=== PATIENT | female | born 1960 | race Caucasian/White ===

== ENCOUNTER 2018-05-12 14:00 | Outpatient (CLI) | payer OTHER ==
[2015-12-17 12:11] VITALS: BP 139/88
[2018-05-12 14:34] LABS: BASOPHILS % 0.7 (0.0-1.5); EOSINOPHILS % 7.2 % (0.0-6.8); MEAN CORPUSCULAR HEMOGLOBIN 27.3 pg (28.0-34.0); MONOCYTES % 6.4 % (0.0-11.0); NEUTROPHILS # 5.1 # k/uL (1.4-7.7)
[2018-05-12 14:41] LABS: eGFR (Non-African) > 60
== END 2018-05-12 14:02 ==
LOC: LAB 14:00
PROVIDERS: ATTEND Family Medicine
DX: I10 Essential (primary) hypertension (principal); I65.23 Occlusion and stenosis of bilateral carotid arteries
CPT/HCPCS: 36415; 80053; 85025

== ENCOUNTER 2018-05-13 12:50 | Outpatient (CLI) | payer OTHER ==
[2015-12-17 12:11] VITALS: BP 139/88
--- NOTE | 2018-05-13 17:20 | Diagnostic Imaging Report ---
MAHSA BARRIOS [facility] [address] [facility] [address] [place] [address]. [id number] Report Submission Date: May 13, 2018 5:07:08 PM ESTABLISHMENT GUIDE Patient Study Name: BELLA RICO Date: May 13, 2018 1:06:18 PM ESTABLISHMENT GUIDE Modality Type: US Gender: F Description: US CAROTID : 58 Institution: [facility] Physician: MAHSA BARRIOS Duplex carotid ultrasound Clinical history carotid stenosis Comparison: None Technique ultrasound and color Doppler was performed of the carotid arteries Findings: There is atherosclerotic plaque in the right common carotid artery and right carotid bulb. Plaque extends in the proximal right internal and external carotid arteries. There is no evidence of hemodynamically significant stenosis. Right vertebral artery blood flow is antegrade new. The left common carotid artery left carotid bulb and left internal carotid artery show atherosclerotic plaque and intimal thickening. The degree of stenosis appears less than 50%. There is left vertebral artery antegrade blood flow. A right internal carotid artery peak flow velocities 105 cm per second. The left internal carotid artery peak flow velocities 107 cm per second. The systolic right internal to common carotid ratio is 1.1. The left systolic internal carotid common carotid the ratio is 1.4 Impression: 16 of 49% bilateral internal carotid artery stenosis Antegrade vertebral blood flow Electronically signed on May 13, 2018 5:07:08 PM ESTABLISHMENT GUIDE by: Gerhard PAYNE
--- NOTE | 2018-05-13 17:21 | Diagnostic Imaging Report ---
MAHSA BARRIOS [facility] [address] [facility] [address] [address] Report Submission Date: May 13, 2018 4:29:04 PM FINANCIAL AID COORDINATOR Patient Study Name: BELLA RICO Date: May 13, 2018 1:42:45 PM FINANCIAL AID COORDINATOR Modality Type: US\OT Gender: F Description: : 58 Institution: [facility] Physician: MAHSA BARRIOS Examination: Ultrasound arterial History: Leg discomfort Comparison exams: None available Findings: Sonographic evaluation of the lower extremity arterial system from the groin to the distal extremities bilaterally demonstrates diminished waveforms. Right ankle(DP)/brachial index of 0.72. Left ankle (DP)/brachial index of 0.36 Impression: Left greater than right significant restriction hemodynamic flow - consider distal extremity runoff examination to further evaluate. Electronically signed on May 13, 2018 4:29:04 PM FINANCIAL AID COORDINATOR by: Xavi PAYNE
== END 2018-05-13 12:55 | disposition home or self-care (01) ==
LOC: RAD 12:50
PROVIDERS: ATTEND Family Medicine
DX: I73.9 Peripheral vascular disease, unspecified (principal); I65.23 Occlusion and stenosis of bilateral carotid arteries
CPT/HCPCS: 93880; 93923

== ENCOUNTER 2019-01-06 17:10 | Inpatient (IN) | payer OTHER ==
[2019-01-06] MEDS ORDERED: IPRATROPIUM/ALBUTEROL SULFATE 3 ML AMPUL.NEB NEB ONE ×4 (17:20→23:22)
--- NOTE | 2019-01-06 17:44 | ED Physician Documentation ---
Dyspnea - HISTORIAN Historian: patient - HPI Stated Complaint: shortness of breath Chief Complaint: Dyspnea Additional Information: Patient presents to ED with a 4 day history of increasing shortness of breath, dry cough and wheezing. Patient has known COPD, uses albuterol inhaler and used to be on oxygen in the past. Patient states, "I let my oxygen go back several years ago and I probably shouldn't have". Patient presented to ED with SaO2 77% on room air. Onset: days ago (4) Duration: continues in ED Initiating Event: upper respiratory illness Severity: severe Exacerbated By: exertion, coughing Associated Symptoms: chills, other (dry cough) - ROS CONST: no problems EYES/ENT: none GI/: none NEURO/PSYCH: denies: headache MS/SKIN/LYMPH: none - PAST HX Lung Disease: COPD Cardiac Disease: none PE Risk Factors: none Surgeries/Procedures: other (Stents in legs) Other History: none Allergies/Adverse Reactions: Allergies Allergy/AdvReac Type Severity Reaction Status Date / Time lisinopril Allergy Intermediate Cough Verified 02/12/15 15:22 - SOCIAL HX Smoking History: cigarettes, greater than 1 pack/day (50 pack year history) Alcohol Use: none Drug Use: none - FAMILY HX Family History: none - VITAL SIGNS Vital Signs: Vital Signs Temp Pulse Resp BP Pulse Ox 139/88 12/17/15 12:10 - REVIEWED ASSESSMENTS Nursing Assessment Reviewed: Yes Vitals Reviewed: Yes Progress - Progress Progress: 1825 Discussed with Yokasta Murillo, MANAGER OF COMPLIANCE for admission. Agrees with admission - EKG/XRAY/CT EKG: NSR Comments: 1739 NSR [address] elevation ED Results Lab/Radiology - Lab Results Lab Results: ABG - pH 7.39, pCO2 50, pO2 76, TCO2 31.8, BE 4.2, HCO 28.1 on 4 liters O2 - Radiology Radiology Impressions: Report Submission Date: Jan 06, 2019 6:19:27 PM CDT Patient Study Name: BELLA RICO Date: Jan 06, 2019 5:50:23 PM CDT Modality Type: DX Gender: F Description: CHEST 2VIEW : 58 Institution: [facility] Physician: FANY ASKEW EXAMINATION: CHEST 2VIEW HISTORY: CXR, SOA X4 DAYS, WORSE TODAY, COUGH, PT STATES SMOKER, COPD (Hx) / Note time : 01/06/2019 6:11:03 PM User : Mary Rodriguez CXR, SOA X4 DAYS, WORSE TODAY, COUGH, PT STATES SMOKER, COPD (DICOM Hx) (DICOM Hx) COMPARISON: None FINDINGS: There are diffuse bilateral interstitial and airspace opacities. There is asymmetric partial opacification of the right lung apex. There is no pleural effusion or pneumothorax. The cardiomediastinal silhouette is normal. The visible bony thorax is intact. IMPRESSION: 1. Diffuse bilateral interstitial and airspace opacities, which may represent pneumonia or pulmonary edema in the acute setting. In the chronic setting, superimposed emphysema could have a similar appearance. 2. Asymmetric partial opacification of the right lung apex. Correlation with prior imaging is recommended to assess ability. If unavailable, nonemergent CT of the chest without contrast is recommended for further evaluation. Electronically signed on Jan 06, 2019 6:19:27 PM CDT by: Deniz Lopez - Orders Orders: ED Orders Category Date Time Status CHEST 2VIEW [RAD] Stat Exams 01/06/19 Ordered ARTERIAL BLOOD GAS Stat Lab 01/06/19 Uncollected BNP [NTBNP] Stat Lab 01/06/19 Ordered CBC/PLATELET/DIFF Routine Lab 01/06/19 Ordered CMP Routine Lab 01/06/19 Ordered TROPONIN I DAILY Lab 01/06/19 17:45 Ordered Ipratropium/Albuterol Sulfate [Duoneb] Med 01/06/19 17:20 Discontinued 3 ml NEB .STK-MED ONE Ipratropium/Albuterol Sulfate [Duoneb] Med 01/06/19 17:36 Once 3 ml NEB NOW ONE Ipratropium/Albuterol Sulfate [Duoneb] Med 01/06/19 17:37 Once 3 ml NEB NOW ONE EKG WITH COMPARISON Stat Ther 01/06/19 Ordered Dyspnea Physical Exam - EXAM General Appearance: moderate distress EENT: TYREE Neck: nml inspection Respiratory: respiratory distress, prolonged expirations, accessory muscle use, decreased air movement, wheezes CVS: reg. rate & rhythm Abdomen: non-tender, no distention Skin: color nml Extremities: non-tender Neuro/Psych: oriented x3 Discharge Clincal Impression: Hyponatremia, COPD with acute exacerbation Bilateral pneumonia Qualifiers: Pneumonia type: due to unspecified organism Lung location: lower lobe of lung Qualified Code(s): J18.1 - Lobar pneumonia, unspecified organism Referrals: Justus Bryant MD [Primary Care Provider] - 2 Days Disposition: ADMITTED INPATIENT Decision to Admit: [id number] Date of Decison to Admit: 01/06/19 Decision Time: 18:37
[2019-01-06] MEDS ORDERED: 0.9 % SODIUM CHLORIDE 1,000 ML IV ONE ×3 (17:54→20:37)
[2019-01-06 17:56] LABS: eGFR (Non-African) > 60
[2019-01-06] MEDS ORDERED: methylPREDNISolone SOD SUCC 125 MG/2 ML VIAL IVP ONE (18:39)
[2019-01-06] MEDS ORDERED: MAG HYDROX/ALUMINUM HYD/SIMETH 30 ML UDC PO PRN (19:37)
[2019-01-06] MEDS ORDERED: DOCUSATE SODIUM 100 MG CAPSULE PO PRN (19:37)
[2019-01-06] MEDS ORDERED: ALPRAZolam 0.5 MG TABLET PO PRN (19:37)
[2019-01-06] MEDS ORDERED: HYDROcodone /APAP 5/325 1 EACH TABLET PO PRN (19:37)
[2019-01-06] MEDS ORDERED: ACETAMINOPHEN 325 MG TABLET PO PRN (19:45)
[2019-01-06] MEDS: 0.9 % SODIUM CHLORIDE 1,000 ML IV SCH ×3 (20:28→21:05)
[2019-01-06] MEDS ORDERED: SIMVASTATIN 40 MG TABLET ONE (20:36)
[2019-01-06] MEDS ORDERED: METOPROLOL TARTRATE 50 MG TABLET ONE (20:36)
[2019-01-06] MEDS ORDERED: HEPARIN SODIUM 5000 UNIT/1 ML ONE (20:36)
[2019-01-06] MEDS ORDERED: methylPREDNISolone SOD SUCC 40 MG/ML VIAL ONE (20:36)
[2019-01-06] MEDS ORDERED: amLODIPine BESYLATE 5 MG TABLET ONE (20:37)
[2019-01-06] MEDS: HEPARIN SODIUM 5000 UNIT/1 ML SQ SCH (20:59)
[2019-01-06] MEDS: methylPREDNISolone SOD SUCC 40 MG/ML VIAL IVP SCH (21:00)
[2019-01-06] MEDS: SALINE FLUSH 10 ML DISP.SYRIN IV SCH (21:00)
[2019-01-06] MEDS: SIMVASTATIN 40 MG TABLET PO SCH (21:01)
[2019-01-06] MEDS: METOPROLOL TARTRATE 100 MG PO SCH ×2 (21:03→23:40)
[2019-01-06] MEDS: IPRATROPIUM/ALBUTEROL SULFATE 3 ML AMPUL.NEB NEB SCH (23:00)
[2019-01-06] MEDS ORDERED: BUDESONIDE 0.5MG/2ML AMPUL.NEB NEB ONE (23:22)
[2019-01-06] MEDS: BUDESONIDE 0.5MG/2ML AMPUL.NEB NEB SCH (23:30)
[2019-01-07] MEDS ORDERED: HEPARIN SODIUM 5000 UNIT/1 ML ONE (05:42)
[2019-01-07] MEDS ORDERED: IPRATROPIUM/ALBUTEROL SULFATE 3 ML AMPUL.NEB NEB ONE (05:42)
[2019-01-07] MEDS ORDERED: methylPREDNISolone SOD SUCC 40 MG/ML VIAL ONE (05:42)
[2019-01-07] MEDS: IPRATROPIUM/ALBUTEROL SULFATE 3 ML AMPUL.NEB NEB SCH (06:46)
[2019-01-07] MEDS ORDERED: IPRATROPIUM/ALBUTEROL SULFATE 3 ML AMPUL.NEB NEB PRN ×2 (06:47→08:33)
[2019-01-07] MEDS: methylPREDNISolone SOD SUCC 40 MG/ML VIAL IVP SCH (06:48)
[2019-01-07] MEDS: HEPARIN SODIUM 5000 UNIT/1 ML SQ SCH (06:48)
--- NOTE | 2019-01-07 06:48 | History and Physical Report ---
History of Present Illnes - History of Present Illness Reason for Visit: Pneumonia/COPD History of Present Illness: Patient presented to ED with a 4 day history of increasing shortness of breath, dry cough and wheezing. Patient has known COPD, uses albuterol inhaler and used to be on oxygen in the past. Patient states, "I let my oxygen go back several years ago and I probably shouldn't have". Patient presented to ED with SaO2 77% on room air. Patient was admitted for pneumonia and exacerbation of COPD. - Past Medical History Cardiac: CAD, HTN, Hyperlipidemia, Mitral valve stenosis (following with cardiology), Other (PVD) Pulmonary: COPD (O2 at night), Other (pulmonary nodules on CT MAR, 2014 unchanged) Gastrointestinal: GERD Musculoskeletal: Other (chronic chest wall pain) - Past Surgical History Past Surgical History: Other (stents in legs) - Past Family History Mother Family History: CAD, Hypertension Father Family History: Hypertension - Past Social History Smoke: 2 packs per day (cut back recently and thinking about quitting.) Occupation: unknown Alcohol: None Drugs: None Lives: Alone Domestic Violence: Negative - Health Maintenance Health Maintenance: Influenza Vaccine (couple of years ago), Pneumococcal Vaccine Pneumonia Vaccine: Yes Resuscitation Status: Resusciation Status Resuscitation Status Full Code - Unable to Obtain History Unable to Obtain: No Review of Systems - Review of Systems Constitutional: Weakness. negative: Fever, Chills Eyes: negative: conjunctivae inflammation, eyelid inflammation ENT: negative: Nose Congestion, Throat Swelling Respiratory: Cough, Shortness of Breath, SOB with Excertion, Wheezing Cardiovascular: Chest Pain (From coughing) Gastrointestinal: negative: Nausea, Vomiting, Abdominal Pain Genitourinary: negative: Dysuria Musculoskeletal: negative: Back Pain Skin: negative: Rash Neurological: Weakness - Medications/Allergies Allergies/Adverse Reactions: Allergies Allergy/AdvReac Type Severity Reaction Status Date / Time lisinopril Allergy Intermediate Cough Verified 02/12/15 15:22 Current Inpatient Medications: Current Inpatient Medications Acetaminophen (Tylenol) 650 mg PO Q6H PRN PRN Reason: Fever >101 Hydrocodone Bitart/Acetaminophen ([place] 5/325) 1 each PO Q4H PRN PRN Reason: Severe Pain (Score 8-10) Al Hydrox/Mg Hydrox/Simethicone (Mylanta) 30 ml PO Q6 PRN PRN Reason: Heartburn Albuterol/Ipratropium (Duoneb) 3 ml NEB Q4 PRN PRN Reason: Wheezing Alprazolam (Xanax) 0.5 mg PO Q4 PRN PRN Reason: Anxiety Budesonide (Pulmicort) 0.5 mg NEB BID [facility] Last Admin: 01/06/19 23:30 Dose: 0.5 mg Docusate Sodium (Colace) 100 mg PO DAILY PRN PRN Reason: Constipation Enoxaparin Sodium (Lovenox) 30 mg SQ DAILY [facility] Stop: 01/21/19 08:59 Azithromycin 500 mg/ Sodium (Chloride) 250 mls @ 250 mls/hr IV Q24H [facility] Stop: 01/11/19 07:59 Sodium Chloride (Normal Saline) 1,000 mls @ 60 mls/hr IV Q10H [facility] Levofloxacin/Dextrose (Levaquin) 750 mg IV DAILY [facility] Methylprednisolone Sodium Succinate (Solu-Medrol) 40 mg IVP Q8 [facility] Last Admin: 01/06/19 21:00 Dose: 40 mg Miscellaneous (Amlodipine Besylate [Norvasc]) 10 mg PO DAILY [facility] Miscellaneous (Losartan Potassium [Losartan Potassium]) 100 mg PO DAILY [facility] Miscellaneous (Metoprolol Tartrate [Metoprolol Tartrate]) 100 mg PO BID [facility] Last Admin: 01/06/19 23:40 Dose: 100 mg Miscellaneous (Omeprazole [Omeprazole]) 20 mg PO DAILY [facility] Simvastatin (Zocor) 40 mg PO HS [facility] Last Admin: 01/06/19 21:01 Dose: Not Given Sodium Chloride (Normal Saline Flush) 3 ml IV BID [facility] Last Admin: 01/06/19 21:00 Dose: 3 ml Exam - Exam Vital Signs: Vital Signs (72 hours) 01/06/19 01/06/19 01/06/19 19:27 19:30 20:13 Temperature 99.2 F Pulse Rate [ 110 H Left] Respiratory 22 Rate Blood Pressure 179/66 Blood Pressure 159/62 155/72 [Left Arm] O2 Sat by Pulse 90 L Oximetry 01/06/19 01/07/19 01/07/19 20:15 00:13 05:29 Temperature 99.2 F 98.4 F 97.4 F L Pulse Rate [ 110 H 115 H 79 Left] Respiratory 22 20 18 Rate Blood Pressure Blood Pressure 155/22 127/67 145/64 [Left Arm] O2 Sat by Pulse 90 L 93 80 L Oximetry 01/07/19 05:45 Temperature Pulse Rate [ Left] Respiratory Rate Blood Pressure Blood Pressure [Left Arm] O2 Sat by Pulse 91 L Oximetry General: Alert, Oriented to Person, Oriented to Place, Oriented to Time, Cooperative, Mild distress, Thin HEENT: Atraumatic, PERRLA, Mouth Mucous membr. moist/[place], Nose Mucous membr. moist/[place] Neck: Normal Range of Motion Carotids: No bruit Lungs: Wheezes, Rhonchi, Decreased Air Movement Cardiovascular: Regular rate, Normal S1, Normal S2 Peripheral Edema: None Peripheral Pulses: 2+ Abdomen: Normal bowel sounds, Soft Integumentary: Warm, Dry, Pale Extremities: No edema, Normal pulses, No tenderness/swelling Neurological: Normal gait, Normal speech, Strength Equal Bilat, Normal tone, Sensation intact Psych/Mental Status: Mental status NL, Mood NL, Appropriate Affect - Laboratory Results Laboratory Results: Laboratory Results 01/07/19 06:00 WBC 22.40 H RBC 4.34 Hgb 12.1 Hct 36.2 MCV 83.0 MCH 27.8 L MCHC 33.4 RDW 15.0 H Plt Count 332 Assessment/Plan - Assessment/Plan (1) Essential hypertension Status: Active Current Visit: No Plan: Will continue with home medications for HTN (2) Bilateral pneumonia Status: Acute Current Visit: No Qualifiers: Pneumonia type: due to unspecified organism Lung location: lower lobe of lung Qualified Code(s): J18.1 - Lobar pneumonia, unspecified organism Plan: Will treat with IVF, IV antibiotics x 2 (blood cultures pending), scheduled nebulizers, incentive spirometer (3) COPD with acute exacerbation Status: Acute Current Visit: No Plan: Will treat the same as pneumonia; add steroids IV VTE Assessment - RISK FACTOR SCORE VTE RISK FACTOR SCORES: AGE 40-60 YEARS, ACUTE RESPIRATORY FAILURE/SEVERE COPD, SMOKER - RISK VTE HIGH RISK: SCORE OF 3-4 (RISK PROXIMAL DVT 4-8%) PROPHYLAXIS NEEDED (Lovenox daily, ambulation, incentive spirometer)
[2019-01-07] MEDS: 0.9 % SODIUM CHLORIDE 1,000 ML IV SCH ×2 (06:50→14:44)
[2019-01-07 06:58] LABS: eGFR (Non-African) > 60
[2019-01-07] MEDS ORDERED: AZITHROMYCIN 500 MG VIAL IV ONE (07:17)
[2019-01-07] MEDS ORDERED: 0.9 % SODIUM CHLORIDE 250 ML IV ONE (07:17)
[2019-01-07] MEDS: AZITHROMYCIN 500 MG in 0.9 % SODIUM CHLORIDE 250 ML IV SCH (07:33)
[2019-01-07 07:36] LABS: ANISOCYTOSIS 1+ (NEGATIVE); TOXIC GRANULATION PRESENT; TOXIC VACUOLATION PRESENT
--- NOTE | 2019-01-07 08:03 | Diagnostic Imaging Report ---
FANY ASKEW [facility] [address] [facility] [address] [place], [place]. [address] Report Submission Date: Jan 06, 2019 6:19:27 PM CDT Patient Study Name: BELLA RICO Date: Jan 06, 2019 5:50:23 PM CDT Modality Type: DX Gender: F Description: CHEST 2VIEW : 58 Institution: [facility] Physician: FANY ASKEW EXAMINATION: CHEST 2VIEW HISTORY: CXR, SOA X4 DAYS, WORSE TODAY, COUGH, PT STATES SMOKER, COPD (Hx) / Note time : 01/06/2019 6:11:03 PM User : Mary Rodriguez CXR, SOA X4 DAYS, WORSE TODAY, COUGH, PT STATES SMOKER, COPD (DICOM Hx) (DICOM Hx) COMPARISON: None FINDINGS: There are diffuse bilateral interstitial and airspace opacities. There is asymmetric partial opacification of the right lung apex. There is no pleural effusion or pneumothorax. The cardiomediastinal silhouette is normal. The visible bony thorax is intact. IMPRESSION: 1. Diffuse bilateral interstitial and airspace opacities, which may represent pneumonia or pulmonary edema in the acute setting. In the chronic setting, superimposed emphysema could have a similar appearance. 2. Asymmetric partial opacification of the right lung apex. Correlation with prior imaging is recommended to assess ability. If unavailable, nonemergent CT of the chest without contrast is recommended for further evaluation. Electronically signed on Jan 06, 2019 6:19:27 PM CDT by: Deniz PAYNE
[2019-01-07] MEDS ORDERED: amLODIPine BESYLATE 5 MG TABLET ONE (08:31)
[2019-01-07] MEDS ORDERED: ENOXAPARIN SODIUM 30 MG/0.3 ML DISP.SYRIN SQ ONE (08:31)
[2019-01-07] MEDS ORDERED: LOSARTAN POTASSIUM 50 MG TABLET PO ONE (08:31)
[2019-01-07] MEDS ORDERED: METOPROLOL TARTRATE 50 MG TABLET ONE (08:31)
[2019-01-07] MEDS ORDERED: BUDESONIDE 0.5MG/2ML AMPUL.NEB NEB ONE ×2 (08:32→21:16)
[2019-01-07] MEDS ORDERED: ACETAMINOPHEN 325 MG TABLET PO PRN (08:33)
[2019-01-07] MEDS ORDERED: ALPRAZolam 0.5 MG TABLET PO PRN (08:33)
[2019-01-07] MEDS: NICOTINE 21mg 1 EACH PATCH.TD24 TD SCH (08:56)
[2019-01-07] MEDS ORDERED: Non-Formulary 1 EACH (Omeprazole [Omeprazole] 20 MG) PO SCH (09:00)
[2019-01-07] MEDS ORDERED: AMLODIPINE BESYLATE 10 MG PO SCH (09:00)
[2019-01-07] MEDS ORDERED: LOSARTAN POTASSIUM 100 MG PO SCH (09:00)
[2019-01-07] MEDS ORDERED: ENOXAPARIN SODIUM 30 MG/0.3 ML DISP.SYRIN SQ SCH (09:00)
[2019-01-07] MEDS ORDERED: NICOTINE 21mg 1 EACH PATCH.TD24 TD SCH (09:00)
[2019-01-07] MEDS: SALINE FLUSH 10 ML DISP.SYRIN IV SCH ×2 (09:16→21:10)
[2019-01-07] MEDS: BUDESONIDE 0.5MG/2ML AMPUL.NEB NEB SCH ×2 (09:17→21:53)
[2019-01-07] MEDS: METOPROLOL TARTRATE 50 MG TABLET PO SCH ×2 (09:18→21:52)
[2019-01-07] MEDS: ENOXAPARIN SODIUM 30 MG/0.3 ML DISP.SYRIN SQ SCH (09:18)
[2019-01-07] MEDS: LOSARTAN POTASSIUM 50 MG TABLET PO SCH (09:18)
[2019-01-07] MEDS: PANTOPRAZOLE SODIUM 40 MG TABLET.DR PO SCH (09:19)
[2019-01-07] MEDS: amLODIPine BESYLATE 5 MG TABLET PO SCH (09:19)
[2019-01-07] MEDS ORDERED: 0.9 % SODIUM CHLORIDE 1,000 ML IV ONE (14:39)
[2019-01-07 15:51] LABS: SEGMENTED NEUTROPHILS % 72 % (39-79)
--- NOTE | 2019-01-07 18:43 | Diagnostic Imaging Report ---
AFNY ASKEW [facility] [address] [facility] [address] [place], [place]. [address] Report Submission Date: Jan 07, 2019 3:59:44 PM CDT Patient Study Name: BELLA RICO Date: Jan 07, 2019 10:30:11 AM CDT Modality Type: CT\SR Gender: F Description: CT CHEST W/O : 58 Institution: [facility] Physician: FANY ASKEW Exam: CT chest without contrast. History: Abnormal chest x-ray. Axial images through the thorax are submitted along with sagittal and coronal reformatted images. Patchy infiltrates in the right apex is noted. A pleural based nodular density in the posterior right upper lobe measures 1.5 cm in greatest diameter. Smaller noncalcified pulmonary nodules in the right upper lobe is also noted. Linear infiltrates in the lingula and middle lobe are identified. No pleural effusions are seen. Heart size is normal. The thoracic aorta is of normal caliber. The mainstem pulmonary artery is of normal caliber. No significant mediastinal or axillary adenopathy is detected on this nonenhanced study. Acute fracture of the right 8th rib is noted. Mild degenerate changes in the thoracic spine are noted. Impression: Patchy infiltrates in the right apex. 1.5 cm pleural based nodular density in the posterior right upper lobe is noted. Smaller noncalcified pulmonary nodules in the right upper lobe are also noted. Linear infiltrates in the lingula and middle lobe. Acute appearing fracture of the right 8th rib is noted. Clinical correlation is recommended. Electronically signed on Jan 07, 2019 3:59:44 PM CDT by: Gene PAYNE
[2019-01-07] MEDS ORDERED: SIMVASTATIN 40 MG TABLET ONE (21:16)
[2019-01-07] MEDS: SIMVASTATIN 40 MG TABLET PO SCH (21:51)
[2019-01-08] MEDS: 0.9 % SODIUM CHLORIDE 1,000 ML IV SCH ×3 (00:17→06:15)
[2019-01-08 02:42] VITALS: BMI 21.3
[2019-01-08] MEDS ORDERED: AZITHROMYCIN 500 MG VIAL IV ONE (05:54)
[2019-01-08] MEDS ORDERED: 0.9 % SODIUM CHLORIDE 250 ML IV ONE (05:55)
[2019-01-08] MEDS: AZITHROMYCIN 500 MG in 0.9 % SODIUM CHLORIDE 250 ML IV SCH (06:14)
[2019-01-08] MEDS: PANTOPRAZOLE SODIUM 40 MG TABLET.DR PO SCH (06:24)
--- NOTE | 2019-01-08 08:23 | Inpatient Progress Note ---
Subjective - Required Recertification Statement I anticipate X number of days because-include discharge plan: 1 - Review of Systems Events since last encounter: Patient appears to be doing a little better this morning- it appears that oxygen saturations were dipping into the 80s on 4L NC- she would improve after nebulizer treatments. She has a productive and is moving more air. We will continue to monitor and treat with IV antibiotics, steroids, and duonebs. General: Fatigue. Denies: Chills HEENT: Sinus Congestion. Denies: Head Aches Pulmonary: Dyspnea, Cough Cardiovascular: Denies: Chest Pain, Edema Gastrointestinal: Denies: Nausea, Vomiting Genitourinary: Denies: Dysuria Musculoskeletal: Back Pain Neurological: Weakness Objective - Exam Vitals and I&O: Vital Signs Temp 97.7 F 01/08/19 06:00 Pulse 62 01/08/19 06:00 Resp 20 01/08/19 06:00 BP 133/67 01/08/19 06:00 Pulse Ox 89 L 01/08/19 06:00 Intake & Output 01/07/19 01/07/19 01/08/19 11:59 23:59 11:59 Intake Total 520 1120 680 Output Total 600 Balance 520 520 680 Weight 51.256 kg 51.256 kg 51.256 kg Intake: IV 400 180 480 Right Antecubital 180 480 Right Forearm 400 Oral 120 940 200 Output: Urine 600 Other: Voiding Method Toilet Toilet Toilet # Voids 1 2 1 # Bowel Movements 0 1 General: Alert, Oriented to Person, Oriented to Place, Oriented to Time, Cooperative, Mild distress (with exertion), Thin HEENT: Atraumatic, PERRLA, Mouth Mucous membr. moist/[place], Nose Mucous membr. moist/[place] Neck: Supple, +2 carotid pulse wo bruit Lungs: Wheezes, Rhonchi, Decreased Air Movement Cardiovascular: Regular rate, Normal S1, Normal S2 Abdomen: Normal bowel sounds, Soft, No tenderness Extremities: Normal pulses, No tenderness/swelling Skin: Normal, [place], Warm, Dry Neurological: Normal gait, Normal speech, Strength Equal Bilat, Normal tone, Sensation intact Psych/Mental Status: Mental status NL, Mood NL, Appropriate Affect, Intact Judgment - Results Results: Laboratory Results WBC 22.40 K/ul (4.00-12.00) H 01/07/19 06:00 RBC 4.34 M/ul (3.90-5.20) 01/07/19 06:00 Hgb 12.1 g/dL (11.5-16.0) 01/07/19 06:00 Hct 36.2 % (34.5-46.5) 01/07/19 06:00 MCV 83.0 fl (80.0-100.0) 01/07/19 06:00 MCH 27.8 pg (28.0-34.0) L 01/07/19 06:00 MCHC 33.4 g/dL (30.0-36.0) 01/07/19 06:00 RDW 15.0 % (11.3-14.3) H 01/07/19 06:00 Plt Count 332 K/mm3 (130-400) 01/07/19 06:00 Neut % (Auto) Painter Decorator 01/06/19 17:28 Lymph % (Auto) Painter Decorator 01/06/19 17:28 [place] % (Auto) Painter Decorator 01/06/19 17:28 Eos % (Auto) Painter Decorator 01/06/19 17:28 Baso % (Auto) Painter Decorator 01/06/19 17:28 Neut # (Auto) Painter Decorator 01/06/19 17:28 Lymph # (Auto) Painter Decorator 01/06/19 17:28 [place] # (Auto) Painter Decorator 01/06/19 17:28 Eos # (Auto) Painter Decorator 01/06/19 17:28 Baso # (Auto) Painter Decorator 01/06/19 17:28 Seg Neutrophils % 72 % (39-79) 01/07/19 06:00 Band Neutrophils % 3 % (0-12) 01/07/19 06:00 Lymphocytes % 14 % (16-50) L 01/07/19 06:00 Monocytes % 11 % (0-11) 01/07/19 06:00 Toxic Granulation Present 01/07/19 06:00 Toxic Vacuolation Present 01/07/19 06:00 Plt Morphology Comment Normal (NORMAL) 01/07/19 06:00 Anisocytosis 1+ (NEGATIVE) H 01/07/19 06:00 RBC Morph Comment Abnormal (NORMAL) H 01/07/19 06:00 Sodium 143 mmol/L (137-145) 01/07/19 06:00 Potassium 3.5 mmol/L (3.5-5.1) 01/07/19 06:00 Chloride 110 mmol/L (98-107) H 01/07/19 06:00 Carbon Dioxide 29 mmol/L (22-30) 01/07/19 06:00 BUN 7 mg/dL (7-17) 01/07/19 06:00 Creatinine 0.53 mg/dL (0.52-1.04) 01/07/19 06:00 Estimated Creat Clear 108 01/07/19 06:00 Est GFR ( Amer) > 60 (60-) 01/07/19 06:00 Est GFR (Non-Af Amer) > 60 (60-) 01/07/19 06:00 Glucose 107 mg/dL (74-106) H 01/07/19 06:00 Lactate 1.2 U/L (0.7-2.1) 01/06/19 17:28 Calcium 8.7 mg/dL (8.4-10.2) 01/07/19 06:00 Total Bilirubin 0.7 mg/dL (0.2-1.3) 01/06/19 17:28 AST 34 U/L (15-46) 01/06/19 17:28 ALT 15 U/L (13-69) 01/06/19 17:28 Alkaline Phosphatase 144 U/L (38-126) H 01/06/19 17:28 Troponin I < 0.012 ng/mL (0.012-0.034) L 01/06/19 17:28 NT-Pro-B Natriuret Pep 772.6 pg/mL (11.1-125.0) H 01/06/19 17:28 Total Protein 7.3 g/dL (6.3-8.2) 01/06/19 17:28 Albumin 4.0 g/dL (3.5-5.0) 01/06/19 17:28 Assessment/Plan - Assessment/Plan (1) Bilateral pneumonia Status: Acute Qualifiers: Pneumonia type: due to unspecified organism Lung location: lower lobe of lung Qualified Code(s): J18.1 - Lobar pneumonia, unspecified organism Assessment: Rhonchi and wheezes throughout; decreased oxygen saturation Plan: Blood cultures pending; IV antibiotics x 2; duonebs every 4 hours; Incentive spirometer; supplemental oxygen (2) COPD with acute exacerbation Status: Acute Assessment: Lungs are coarse with rhonchi and wheezing; decreased oxygen sats Plan: Blood cultures pending; IV antibiotics x 2; duonebs every 4 hours; Incentive spirometer; supplemental oxygen
[2019-01-08] MEDS ORDERED: BUDESONIDE 0.5MG/2ML AMPUL.NEB NEB ONE ×2 (08:35→19:37)
[2019-01-08] MEDS: LOSARTAN POTASSIUM 50 MG TABLET PO SCH (08:38)
[2019-01-08] MEDS: NICOTINE 21mg 1 EACH PATCH.TD24 TD SCH (08:39)
[2019-01-08] MEDS: METOPROLOL TARTRATE 50 MG TABLET PO SCH ×2 (08:39→20:06)
[2019-01-08] MEDS: amLODIPine BESYLATE 5 MG TABLET PO SCH (08:39)
[2019-01-08] MEDS: ENOXAPARIN SODIUM 30 MG/0.3 ML DISP.SYRIN SQ SCH (08:39)
[2019-01-08] MEDS: BUDESONIDE 0.5MG/2ML AMPUL.NEB NEB SCH ×2 (08:41→20:09)
[2019-01-08] MEDS: SALINE FLUSH 10 ML DISP.SYRIN IV SCH ×2 (11:46→20:04)
[2019-01-08] MEDS ORDERED: SIMVASTATIN 40 MG TABLET ONE (19:37)
[2019-01-08] MEDS: SIMVASTATIN 40 MG TABLET PO SCH (20:06)
[2019-01-09] MEDS ORDERED: AZITHROMYCIN 500 MG VIAL IV ONE (05:10)
[2019-01-09] MEDS ORDERED: 0.9 % SODIUM CHLORIDE 250 ML IV ONE (05:11)
[2019-01-09] MEDS: AZITHROMYCIN 500 MG in 0.9 % SODIUM CHLORIDE 250 ML IV SCH (05:43)
[2019-01-09] MEDS: PANTOPRAZOLE SODIUM 40 MG TABLET.DR PO SCH (05:43)
--- NOTE | 2019-01-09 06:51 | Discharge Summary ---
Discharge Summary - Discharge Sumary Admission Date: 01/06/19 Discharge Date: 01/09/19 Discharge To: Home History of Present Illness: Patient presented to ED with a 4 day history of increasing shortness of breath, dry cough and wheezing. Patient has known COPD, uses albuterol inhaler and used to be on oxygen in the past. Patient states, "I let my oxygen go back several years ago and I probably shouldn't have". Patient presented to ED with SaO2 77% on room air. Patient was admitted for pneumonia and exacerbation of COPD Condition at Discharge: Stable Home Medications: Ambulatory Orders Medication Instructions Recorded ALPRAZolam [Xanax] 0.5 mg PO Q4 PRN tablet 01/09/19 Azithromycin [Zithromax] 250 mg PO DAILY #4 tablet 01/09/19 Budesonide [Pulmicort] 0.5 mg NEB BID ampul.neb 01/09/19 Levofloxacin [Levaquin] 750 mg PO DAILY #4 tablet 01/09/19 Methylprednisolone [Medrol] 4 mg PO DAILY #21 tab.ds.pk 01/09/19 Consultations this Visit: None Procedures this Visit: None Allergies/Adverse Reactions: Allergies Allergy/AdvReac Type Severity Reaction Status Date / Time lisinopril Allergy Intermediate Cough Verified 02/12/15 15:22 Discharge Summary: Patient was admitted through the ER for Pneumonia and exacerbation of COPD. Patient was treated with IV antibiotics x 2; duonebs every 4 hours, incentive spirometry, steroids, and IVF for hydration. She will be discharged home on oral antibiotics- we have arranged for patient to have home oxygen; she is to follow up with PCP for nodule in the right lobe noted on CT. She will continue on oral steroids for COPD. Hospital Course: Pneumonia; COPD;- treated with IV antibiotics x 2, Duonebs, Incentive spirometry, steroids - Final Diagnosis (1) COPD with acute exacerbation Problems: Home oxygen; oral steroids Right or Left: Right (2) Pneumonia Problems: Oral antibiotics x 2; home oxygen Right or Left: Right
[2019-01-09] MEDS ORDERED: levoFLOXacin 250 MG TABLET PO ONE (06:57)
[2019-01-09] MEDS ORDERED: levoFLOXacin 500 MG TABLET ONE (06:57)
[2019-01-09] MEDS ORDERED: AZITHROMYCIN 250 MG TABLET PO ONE ×2 (06:58→09:00)
[2019-01-09] MEDS ORDERED: BUDESONIDE 0.5MG/2ML AMPUL.NEB NEB ONE (06:59)
[2019-01-09 07:37] LABS: SEGMENTED NEUTROPHILS % 65 % (39-79)
[2019-01-09 07:38] LABS: eGFR (Non-African) > 60
[2019-01-09 08:05] VITALS: BP 157/68
[2019-01-09] MEDS: METOPROLOL TARTRATE 50 MG TABLET PO SCH (08:40)
[2019-01-09] MEDS: NICOTINE 21mg 1 EACH PATCH.TD24 TD SCH (08:40)
[2019-01-09] MEDS: ENOXAPARIN SODIUM 30 MG/0.3 ML DISP.SYRIN SQ SCH (08:40)
[2019-01-09] MEDS: LOSARTAN POTASSIUM 50 MG TABLET PO SCH (08:40)
[2019-01-09] MEDS: amLODIPine BESYLATE 5 MG TABLET PO SCH (08:41)
[2019-01-09] MEDS: BUDESONIDE 0.5MG/2ML AMPUL.NEB NEB SCH (08:43)
== END 2019-01-09 10:10 | disposition home or self-care (01) | DRG 190 ==
LOC: SOUTH 17:10 → UNDOADMIN 19:30
PROVIDERS: ADMIT Nurse Practitioner Family; ATTEND Nurse Practitioner Family
DX: J44.0 Chronic obstructive pulmonary disease with (acute) lower respiratory infection (principal); J18.1 Lobar pneumonia, unspecified organism; J44.1 Chronic obstructive pulmonary disease with (acute) exacerbation; R91.1 Solitary pulmonary nodule; I25.10 Atherosclerotic heart disease of native coronary artery without angina pectoris; I10 Essential (primary) hypertension; E78.5 Hyperlipidemia, unspecified; I05.0 Rheumatic mitral stenosis; I73.9 Peripheral vascular disease, unspecified; K21.9 Gastro-esophageal reflux disease without esophagitis; G89.29 Other chronic pain; R07.89 Other chest pain; F17.210 Nicotine dependence, cigarettes, uncomplicated; Z99.81 Dependence on supplemental oxygen; Z91.14 Patient's other noncompliance with medication regimen; Z79.51 Long term (current) use of inhaled steroids; Z88.8 Allergy status to other drugs, medicaments and biological substances; Z95.820 Peripheral vascular angioplasty status with implants and grafts; Z79.899 Other long term (current) drug therapy
CPT/HCPCS: 36415; 36600; 71020; 71046; 71250; 80048; 80053; 82803; 83605; 83880; 84484; 85025; 93005; 97116; 97161; 97165; 97535; J0456; J1030; J1644; J1650; J2930; J7030; J7050; J7626; 99284; J2920; S1016

== ENCOUNTER 2019-02-03 12:47 | Outpatient (CLI) | payer OTHER ==
[2019-02-03 13:48] LABS: eGFR (Non-African) > 60
--- NOTE | 2019-02-03 15:52 | Diagnostic Imaging Report ---
MAHSA BARRIOS [facility] [address] [facility] [address] [address] Report Submission Date: Feb 03, 2019 3:18:09 PM CDT Patient Study Name: BELLA RICO Date: Feb 03, 2019 1:48:18 PM CDT Modality Type: CT\SR Gender: F Description: CT CHEST W/ CONTRAST : 58 Institution: [facility] Physician: MAHSA BARRIOS CT of the chest with IV contrast Clinical history: Left upper lobe nodule 90 mL omnipaque 350. Radiation dose DLP 159 There is a massive scarring tissue of the right upper lobe. The pleural based mass of the right upper lobe has markedly decreased in size heart, hardealy visible. 5 mm nodule the right upper lobe is noted unchanged. Right pleural plaques. Linear scarring in the right middle lobe unchanged since the previous study. Linear scarring in the lingular segment left upper lobe. An old fracture of the right lower ribs. Clear lung bases. No visible hilar or mediastinal adenopathy. Impression: The prior infiltrates of January 07, 2019 has evolved into fibrosis and scarring of the right apex . The posterior pleural based mass in the right upper lung of markedly decreased almost almost completely gone. 5 mm nodule the right upper lobe unchanged Pleural plaques Linear scarring Require followup examination about 4-6 months Electronically signed on Feb 03, 2019 3:18:09 PM CDT by: Getachew PAYNE
== END 2019-02-03 12:50 ==
LOC: RAD 12:47
PROVIDERS: ATTEND Family Medicine
DX: E87.1 Hypo-osmolality and hyponatremia (principal); I10 Essential (primary) hypertension
CPT/HCPCS: 36415; 71260; 80053; Q9967